=== PATIENT | male | born 1985 | race Caucasian/White ===

== ENCOUNTER 2016-08-12 15:40 | Emergency (ER) | payer SELFPAY ==
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
== END 2016-08-12 16:39 | disposition home or self-care (01) ==
LOC: SED 15:40
DX: S23.3XXA Sprain of ligaments of thoracic spine, initial encounter (principal); S40.011A Contusion of right shoulder, initial encounter; V89.2XXA Person injured in unspecified motor-vehicle accident, traffic, initial encounter; Y92.410 Unspecified street and highway as the place of occurrence of the external cause
CPT/HCPCS: 72072; 73030; 99284